=== PATIENT | male | born 1970 | race Caucasian/White ===

== ENCOUNTER 2017-12-29 08:21 | Emergency (ER) | payer OTHER ==
[2017-12-29 08:40] VITALS: BP 113/63
[2017-12-29] MEDS ORDERED: Lidocaine 1%* 5 ML VIAL INJ ONE (08:46)
--- NOTE | 2017-12-29 09:20 | UC ---
Laceration HPI - HPI Summary HPI Summary: cut R index finger with a knife while camping around 5pm last night. no limited rom or FB sensation. - History Of Current Complaint Chief Complaint: UCGeneralIllness Stated Complaint: RIGHT INDEX FINGER LACERATION Time Seen by Provider: 12/29/17 08:38 Hx Obtained From: Patient Onset/Duration: Sudden Onset Pain Intensity: 1 Aggravating Factors: Movement - Allergies/Home Medications Allergies/Adverse Reactions: Allergies Allergy/AdvReac Type Severity Reaction Status Date / Time codeine Allergy Itching Verified 12/29/17 08:35 Home Medications: Home Medications NK [No Home Medications Reported] 12/29/17 [History Confirmed 12/29/17] PMH/Surg Hx/FS Hx/Imm Hx Previously Healthy: Yes - Surgical History Surgical History: None - Family History Known Family History: Positive: None - Social History Occupation: Employed Full-time Lives: With Family Alcohol Use: Occasionally Substance Use Type: None Smoking Status (MU): Current Some Day Smoker - Immunization History Hx Tetanus, Diphtheria Vaccination: Yes Vaccination Up to Date: Yes Review of Systems Constitutional: Negative Skin: Other - cut R index Eyes: Negative ENT: Negative Respiratory: Negative Cardiovascular: Negative Gastrointestinal: Negative Genitourinary: Negative Motor: Negative Neurovascular: Negative Musculoskeletal: Negative Neurological: Negative Psychological: Negative Is Patient Immunocompromised?: No All Other Systems Reviewed And Are Negative: Yes Physical Exam Triage Information Reviewed: Yes Appearance: Well-Appearing Vital Signs: Initial Vital Signs Temp 97.3 F 12/29/17 08:34 Pulse 78 12/29/17 08:34 Resp 16 12/29/17 08:34 BP 113/63 12/29/17 08:34 Pulse Ox 100 12/29/17 08:34 Vital Signs Reviewed: Yes Eyes: Positive: Conjunctiva Clear ENT: Positive: Normal ENT inspection Neck: Positive: Supple Respiratory: Positive: Lungs clear, Normal breath sounds Cardiovascular: Positive: RRR, No Murmur Abdomen Description: Positive: Nontender, No Organomegaly, Soft Bowel Sounds: Positive: Present Musculoskeletal: Positive: ROM Intact Neurological: Positive: Alert Psychological: Positive: Age Appropriate Behavior Skin Exam: Normal, Other - 2cm Laceration R index finger, radial side DIP joint. fat seen, scant bleeding. s/v/m(with resistance) is intact. Laceration Repair - Laceration Repair 1 Procedure Summary: WOUND INSPECTED, NO FB, TENDON OR LIGAMENT INJURY. STERILE TECHNIQUE USED . PT TOLERATED WELL. Description: Linear Laceration Size After Repair: Length (cm) - 2, Width (mm) - 2-3 Contamination/FB Removal: NA Debridement: NA Modified For Repair: No Type Injection: Local Anesthesia Used: 1.0% Lido - 2ML Cleansing Completed Via Routine Prep: Yes Irrigation With Pressure Irrigation Device: Yes Closure Material: Sutures - 4, 2 SIMPLE AND 2 HORIZONTAL MATTRESS Closure Method: Single Layer Suture Of: Skin Suture Type: Nylon Laceration Course/Dx - Course/Dx Course Of Treatment: wound from last pm; however, 2cm long, over a joint with ongoing bleeding thius benefit of repair out weighs risk of infection. pt agrees to take risk for infection thus will suture wound. - Differential Dx - Laceration/Wound Provider Diagnoses: 2.OCM LACERATION R INDEX FINGER Discharge - Sign-Out/Discharge Documenting (check all that apply): Discharge/Admit/Transfer - Discharge Plan Condition: Stable Disposition: HOME Patient Education Materials: Care For Your Stitches (DC) Referrals: No Primary Care Phys,NOPCP [Primary Care Provider] - Additional Instructions: RETURN HERE IN 7-10 DAYS FOR SUTURE REMOVAL OR SOONER FOR ANY CONCERNS - Billing Disposition and Condition Condition: STABLE Disposition: Home
== END 2017-12-29 09:35 | disposition home or self-care (01) ==
LOC: UCCORT 08:21
DX: S61.210A Laceration without foreign body of right index finger without damage to nail, initial encounter (principal); W26.0XXA Contact with knife, initial encounter; Y93.89 Activity, other specified; Y92.833 Campsite as the place of occurrence of the external cause; Z88.5 Allergy status to narcotic agent; F17.210 Nicotine dependence, cigarettes, uncomplicated
CPT/HCPCS: 12001; 99211; G0463

== ENCOUNTER 2018-01-07 08:33 | Emergency (ER) | payer OTHER ==
[2018-01-07 08:45] VITALS: BP 108/65
--- NOTE | 2018-01-07 08:56 | UC ---
HPI Wound/Suture Re-check - HPI Summary HPI Summary: suture removal right index finger laceration right index finger 10 days ago , healing well, - History Of Current Complaint Chief Complaint: UCLaceration Stated Complaint: SUTURE REMOVAL Time Seen by Provider: 01/07/18 08:47 Hx Obtained From: Patient Onset/Duration: Sudden Onset, Lasting Days - 10, Resolved Severity: Moderate Pain Intensity: 2 Procedure Type: suture removal right index finger Surgery Date: 01/07/18 - Allergies/Home Medications Allergies/Adverse Reactions: Allergies Allergy/AdvReac Type Severity Reaction Status Date / Time codeine Allergy Itching Verified 01/07/18 08:43 PMH/Surg Hx/FS Hx/Imm Hx Previously Healthy: Yes - Surgical History Surgical History: None - Family History Known Family History: Positive: None Negative: Diabetes - Social History Alcohol Use: Occasionally Substance Use Type: None Smoking Status (MU): Current Some Day Smoker - Immunization History Hx Tetanus, Diphtheria Vaccination: Yes Vaccination Up to Date: Yes Review of Systems Constitutional: Negative Skin: Negative Eyes: Negative ENT: Negative Respiratory: Negative Is Patient Immunocompromised?: No All Other Systems Reviewed And Are Negative: Yes Physical Exam Triage Information Reviewed: Yes Appearance: Well-Appearing, No Pain Distress, Well-Nourished Vital Signs: Initial Vital Signs Temp 98.1 F 01/07/18 08:40 Pulse 65 01/07/18 08:40 Resp 14 01/07/18 08:40 BP 108/65 01/07/18 08:40 Pulse Ox 100 01/07/18 08:40 Vital Signs Reviewed: Yes Eyes: Positive: Conjunctiva Clear ENT: Positive: Normal ENT inspection, Hearing grossly normal, Pharynx normal Neck: Positive: Supple, Nontender, No Lymphadenopathy Respiratory: Positive: Chest non-tender, Lungs clear, Normal breath sounds Cardiovascular: Positive: RRR, No Murmur, Pulses Normal Musculoskeletal Exam: Normal Skin: Positive: Other - laceration right index finger , 1 cm, sutures are intact , wound is healing , well, no erythema, no swelling, no tenderness, no discharge sutures were removed Course/Dx - Differential Dx - Laceration/Wound Provider Diagnoses: suture remvoal right index finger. laceration right index finger Discharge - Sign-Out/Discharge Documenting (check all that apply): Discharge/Admit/Transfer - Discharge Plan Condition: Stable Disposition: HOME Patient Education Materials: Stitches Removal (ED) Referrals: No Primary Care Phys,NOPCP [Primary Care Provider] - If Needed - Billing Disposition and Condition Condition: STABLE Disposition: Home
== END 2018-01-07 08:57 | disposition home or self-care (01) ==
LOC: UCCORT 08:33
DX: S61.211D Laceration without foreign body of left index finger without damage to nail, subsequent encounter (principal); X58.XXXD Exposure to other specified factors, subsequent encounter; Z88.5 Allergy status to narcotic agent